=== PATIENT | male | born 1955 | race Caucasian/White ===

== ENCOUNTER → 2018-03-06 08:11 | Day surgery (SDC) | payer MEDICARE, MEDICAID, SELFPAY ==
[2018-03-05 11:25] VITALS: BMI 29.7
[2018-03-06 08:30] LABS: Hematocrit 37.1 % (40-54); Mean Corp Hgb Conc 32.3 g/gl (32-36); Mean Corpuscular Hgb 29.4 pg (27.0-32.0); Mean Corpuscular Volume 90.9 fL (80-94); Mean Platelet Vol. 8.5 fl (6.2-12.0); Platelet Count 187 K/mm3 (150-450); RBC Distribution Width CV 13.7 % (11.6-14.6); RBC Distribution Width SD 44.8 fl (35.1-43.9); Red Blood Count 4.08 M/mm3 (4.6-6.2); White Blood Count 7.9 K/mm3 (4.4-11.0)
[2018-03-06 08:37] LABS: Scan Indicated on CBC? Y/N NO
[2018-03-06 08:41] LABS: Anion Gap 8 (5-15); BUN 25 mg/dL (7-18); BUN/Creat Ratio 4.4 RATIO (10-20); Calcium,Total 9.1 mg/dL (8.5-10.1); Chloride 100 mmol/L (98-107); Creatinine, Serum 5.71 mg/dL (0.70-1.30); EST Glomerular Filtration Rate 11 mL/min (>60); Est Glom Filt Rate - Afr Amer 13 mL/min (>60); Estimated Creatinine Clearance 13.14 ml/min; Glucose 97 mg/dL (74-106); Potassium 3.9 mmol/L (3.5-5.1); Sodium Level 138 mmol/L (136-145)
--- NOTE | 2018-03-06 10:36 | OP.PCM_ITS ---
Problem List (1) Problem with dialysis access Status: Acute Qualifiers: Encounter type: initial encounter Qualified Code(s): T82.898A - Other specified complication of vascular prosthetic devices, implants and grafts, initial encounter Report of Operation Date of Procedure: 03/06/18 Pre-Operative Diagnosis: Problem with left forearm radiocephalic arteriovenous fistula with clotting Post-Operative Diagnosis: Segmental complete occlusion proximal left forearm cephalic vein Surgery/Procedure Performed:: Left upper extremity fistulogram with 6 x 80 mm ever cross angioplasty Description of Surgical Findings:: Timeout and informed consent was obtained. 62-year-old gentleman was taken to the special procedures lab. He was placed upon the table. The left upper extremity was sterilely prepped and draped.. Patient received a milligram of Versed. 2% lidocaine was used as local anesthetic local was instilled closer to the wrist antegrade with flow. Micropuncture needle inserted. Micropuncture wire inserted. 6 [place]ian short sheath was inserted. Using Isovue contrast fistulogram was seen in the forearm upper arm and chest area. This demonstrated segmental complete occlusion in the proximal forearm. Patient received 9000 units of heparin. I used an angled Glidewire and a 4 [place]ian angled glide catheter was able to gain access through this area of complete occlusion. I then used a 6 x 80 mm ever cross balloon. The area of occlusion was approximately 6 cm long. I perform balloon angioplasty up to 16 jez of pressure. At the completion I felt that I had gotten recanalize flow. He tolerated that well there was no apparently difficulties. Sheath was removed U suture of 4-0 nylon was placed there was an adequate pulse thrill and bruit at the completion blood loss minimal. History gram demonstrates multiple venous collateralization of the forearm. There is a 6 cm complete occlusion of the cephalic vein in the proximal forearm. The left upper arm cephalic and basilic veins are patent and there is good central venous outflow. Subsequent to the angioplasty now there is irregular cephalic vein wall with a suggestion of either an aneurysm or pseudoaneurysm still with some residual thrombus. However there is in-line flow established. The arterial anastomotic area could not will be visualized despite retrograde imaging. Impression Successfully treated left forearm arteriovenous fistula. The patient may require a rapid stick PTFE graft as a jump graft from the radial artery to the antecubital space. Another option would be to place dialysis catheters and created a left upper arm brachial to cephalic AV fistula. We will see how the current treatment works. Maxime Eason M.D., F.A.C.S. Type of Anesthesia:: IV Sedation
== END ==
PROVIDERS: Visit Provider Surgery
DX: T82.590A Other mechanical complication of surgically created arteriovenous fistula, initial encounter (principal); T82.858A Stenosis of other vascular prosthetic devices, implants and grafts, initial encounter; I13.0 Hypertensive heart and chronic kidney disease with heart failure and stage 1 through stage 4 chronic kidney disease, or unspecified chronic kidney disease; N18.9 Chronic kidney disease, unspecified; I50.9 Heart failure, unspecified; Z99.2 Dependence on renal dialysis; K21.9 Gastro-esophageal reflux disease without esophagitis; J44.9 Chronic obstructive pulmonary disease, unspecified; J45.909 Unspecified asthma, uncomplicated; G47.33 Obstructive sleep apnea (adult) (pediatric); I25.2 Old myocardial infarction; M19.90 Unspecified osteoarthritis, unspecified site; F17.200 Nicotine dependence, unspecified, uncomplicated; Z79.82 Long term (current) use of aspirin; Z79.899 Other long term (current) drug therapy
CPT/HCPCS: 36415; 36902; 76937; 80048; 85027; 99152; 99153; Q9967; C1725; C1769

== ENCOUNTER 2018-07-17 09:49 | Day surgery (SDC) | payer MEDICARE, MEDICAID, SELFPAY ==
[2018-07-16 09:22] VITALS: BMI 30.8
[2018-07-17 10:10] LABS: Hemoglobin 13.3 g/dl (13.0-16.5); Mean Corp Hgb Conc 32.4 g/gl (32-36); Mean Corpuscular Hgb 28.7 pg (27.0-32.0); Mean Corpuscular Volume 88.6 fL (80-94); Mean Platelet Vol. 8.9 fl (6.2-12.0); Platelet Count 221 K/mm3 (150-450); RBC Distribution Width CV 13.4 % (11.6-14.6); RBC Distribution Width SD 43.1 fl (35.1-43.9); Red Blood Count 4.63 M/mm3 (4.6-6.2); Scan Indicated on CBC? Y/N NO; White Blood Count 11.5 K/mm3 (4.4-11.0)
[2018-07-17 10:35] LABS: Anion Gap 11 (5-15); BUN 30 mg/dL (7-18); BUN/Creat Ratio 5.4 RATIO (10-20); Calcium,Total 8.9 mg/dL (8.5-10.1); Chloride 100 mmol/L (98-107); Creatinine, Serum 5.53 mg/dL (0.70-1.30); EST Glomerular Filtration Rate 11 mL/min (>60); Est Glom Filt Rate - Afr Amer 14 mL/min (>60); Estimated Creatinine Clearance 13.12 ml/min; Glucose 100 mg/dL (74-106); Potassium 4.2 mmol/L (3.5-5.1); Sodium Level 138 mmol/L (136-145)
--- NOTE | 2018-07-17 12:47 | PCM.OPRPT ---
Problem List (1) Problem with dialysis access Status: Acute Qualifiers: Qualified Code(s): T82.898D - Other specified complication of vascular prosthetic devices, implants and grafts, subsequent encounter Report of Operation Date of Procedure: 07/17/18 Pre-Operative Diagnosis: Diminished flow left forearm radial to cephalic arteriovenous hemodialysis fistula Post-Operative Diagnosis: High-grade 90% proximal fistula venous stenosis within 2 cm of the anastomosis Surgery/Procedure Performed:: Left upper extremity fistulogram with 6 x 20 mm cutting balloon angioplasty Description of Surgical Findings:: Timeout informed consent was obtained. 62-year-old gent was taken to the special procedures lab. 1 mg of Versed were given intravenously as sedation. The left extremity sterilely prepped draped. Under ultrasound guidance close to the antecubital space 2% lidocaine was instilled as a local anesthetic. Micropuncture needle inserted retrograde flow micropuncture wire inserted 6 Egyptian short sheath was inserted. I then instilled further local totaling 10 cc down close to the wrist. I utilized an 035 angled Glidewire and 4 Egyptian angled glide catheter got access to the radial artery proximal to the anastomosis. Using Isovue contrast fistulogram was taken the forearm and upper arm area. This demonstrated high-grade 90% stenosis of the very proximal portion of the fistula within 2-3 cm of the anastomosis. I replaced the 035 Glidewire. The 6 Egyptian sheath was removed and a 7 Egyptian sheath was inserted. The 4 Egyptian angled glide cath was reinserted. A SV 5 wire was inserted. Then a 6 x 20 mm cutting balloon was inserted and multiple insufflations at the area of high-grade stenosis was performed. Approximately on the sixth insufflation there was release of the tight stricture. Hand-injection view now demonstrated dramatic improvement. I did treat an additional areas slightly more distally in the fistula but still within the forearm area. Completion films demonstrated now dramatic improvement. No apparent complications sheath was removed U suture of 4-0 nylon was placed with good pulse thrill and bruit hand was viable no apparent complication blood loss was minimal. Dillon Gram stain demonstrates left forearm radiocephalic AV fistula. There is a high-grade 90% stenosis within 2-3 cm of the arterial anastomosis. 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 There otherwise is initial good cephalic and basilic vein outflow of the upper arm. Subsequent to the angioplasty the area of high-grade venous stenosis is resolved. Impression Successful left upper extremity fistulogram with successful treatment of high-grade stenosis. Maxime Eason M.D., F.A.C.S. Type of Anesthesia:: IV Sedation
== END 2018-07-17 13:50 | disposition home or self-care (01) ==
PROVIDERS: Visit Provider Surgery
DX: T82.898A Other specified complication of vascular prosthetic devices, implants and grafts, initial encounter (principal); Z99.2 Dependence on renal dialysis; K21.9 Gastro-esophageal reflux disease without esophagitis; G47.30 Sleep apnea, unspecified; I25.2 Old myocardial infarction; I11.9 Hypertensive heart disease without heart failure; E11.9 Type 2 diabetes mellitus without complications; M19.90 Unspecified osteoarthritis, unspecified site; F17.210 Nicotine dependence, cigarettes, uncomplicated; Z79.82 Long term (current) use of aspirin; Z79.899 Other long term (current) drug therapy
CPT/HCPCS: 36415; 36902; 76937; 80048; 85027; 99152; 99153; C1725; Q9967; C1769; C1894